=== PATIENT | female | born 1975 | race Caucasian/White ===

== ENCOUNTER 2023-11-08 23:08 | Emergency (ER) | payer OTHER, SELFPAY ==
--- NOTE | 2023-11-08 23:00 | DI.RAD_ITS ---
Exam(s) XR TIB/FIB LT XR ANKLE LT COMPLETE EXAM: XR ANKLE LT COMPLETE CLINICAL HISTORY: slip/fall, ankle pain, r/o fx TECHNIQUE: 2D digital imaging was performed. Three views. COMPARISON: CR,XR XR TIB/FIB LT from 11/08/2023 FINDINGS: BONES: Mildly displaced oblique fracture through the proximal fibula. Minimally displaced fracture t hrough the posterior malleolus extending in the coronal plane. No significant separation at the caleb cular surface. No bony destructive lesion is seen. JOINTS:Widening of the medial ankle mortise. SOFT TISSUE: Swelling around the malleoli, greater medially. IMPRESSION: Proximal fibular fracture. Fracture of the posterior malleolus. Widening of the medial ankle mortis e. DATA REPOSITORY: RADIATION DOSE DELIVERED:
[2023-11-08 23:10] VITALS: BP 178/109; PULSE 107; RESP 22; TEMP 36.6; O2SAT 100
[2023-11-08] MEDS: Acetaminophen 500 MG TAB 1000 MG PO (23:25)
[2023-11-08] MEDS: Ibuprofen 800 MG TAB PO (23:26)
--- NOTE | 2023-11-09 00:22 | W.ED.GENAD ---
Discharge Plan Disposition Patient Disposition: Home Condition: Good Discharge Details Clinical Impression: Fracture of distal end of left tibia, Fracture of fibula, proximal Primary Care Provider: Beulah Payan ED Provider: Dariel Bhakta Home Meds and New Rx's Prescriptions: No Action dextroamphetamine-amphetamine [Adderall] 20 mg tablet 40 mg PO DAILY fluoxetine [Prozac] 20 mg capsule 20 mg PO DAILY Discharge Instructions Instructions: Ankle Fracture ED Additional Instructions: At this time your x-rays show evidence of a fracture of your tibia and fibula. Unfortunately there also appears to be disruption around your ankle or the ligaments. This requires further evaluation by an marketing communications specialist to determine need for potential surgery. Please ice the area frequently. Please take at 1000 mg of Tylenol every 6 hours and 800 mg of ibuprofen every 6 hours. These are the maximum doses. Please keep your leg elevated. If you notice that the pain becomes unbearable or feels like a viselike sensation, or you notice significant color change for your feet or toes, please loosen up the wrapping for the cast. If the pain persists please come to the ER for further assessment. We have placed a referral with the marketing communications specialist, they will contact you with an appointment time. If you notice any worsening of your symptoms, or any new symptoms such as vomiting, diarrhea, fever, chills, shortness of breath, chest pain, numbness, weakness, or fainting , please return immediately to the emergency department for reevaluation. Please follow up with your primary care provider as soon as possible for reassessment and reevaluation. As always, it was a pleasure participating in your medical care today. Referrals: Lake Delgado MD [ [facility] STAFF PHYSICIAN] - Aaron Ram MD [ [facility] STAFF PHYSICIAN] - Discharge Data Discharge Date/Time-TO BE ENTERED AT DEPARTURE: 11/09/23 00:40 HPI General Date/Time Provider Initiated Documentation: 11/08/23 23:13. HPI Narrative: 48-year-old female presents today for evaluation of left ankle pain. About 30 minutes prior to arrival she was walking with her dog outside when she slipped, heard a pop, felt immediate pain in her ankle and gonzalez, and was unable to bear weight. She called EMS who brought her to the ER. Currently she admits to pain throughout her ankle and on the lateral aspect of her gonzalez. She denies numbness tingling or weakness otherwise. No other complaints. No other trauma. Related Data Home Medications ?Medication ?Instructions ?Recorded ?Confirmed dextroamphetamine-amphetamine 20 40 mg PO DAILY 11/08/23 11/08/23 mg tablet (Adderall) fluoxetine 20 mg capsule (Prozac) 20 mg PO DAILY 11/08/23 11/08/23 Allergies Allergy/AdvReac Type Severity Reaction Status Date / Time No Known Allergies Allergy Verified 11/08/23 23:19 General Stated Complaint: Orthopedic MICHELL: 4 Review of Systems All systems reviewed & are unremarkable except as noted in HPI and below Exam Narrative Exam Narrative: 1.Const: Well-nourished, Well-developed, appearing stated age 2.Eyes: PERRL, no conjunctival injection, and symmetrical lids. 3.ENT: Atraumatic external nose and ears. Moist MM. Neck: Symmetric, trachea midline, No thyromegaly. 4.CVS: +S1/S2, No murmurs or gallops. Peripheral pulses 2+ and equal in all extremities. Brisk capillary refill in all extremities. 5.RESP: Unlabored respiratory effort. Clear to auscultation bilaterally. No wheezes rales or rhonchi 6.GI: Soft, Nontender/Nondistended, No hepatosplenomegaly. No guarding or rebound. 7.MSK: Left ankle demonstrates tenderness throughout the medial and lateral malleolus, pain with flexion and extension. Normal movement of all toes, brisk capillary refill, normal sensation throughout. Dorsalis pedis and posterior tibial pulse +2 bilaterally. Patient is limited for flexion and extension secondary to pain. Patient also has pain on the mid to proximal fibula. No pain at the patella or tibial plateau. 8.Skin: Warm, Dry. No rashes or lesions. 9.Neuro: room designer II-XII grossly intact. Sensation grossly intact, no focal neurologic deficits. 10.Psych: (AAO) x3. Appropriate mood and affect Course Vital Signs Vital signs: Vital Signs Temperature 36.6 C 11/08/23 23:10 Pulse 107 H 11/08/23 23:10 Respiratory Rate 22 11/08/23 23:10 Blood Pressure 178/109 H 11/08/23 23:10 Pulse Oximetry 100 11/08/23 23:10 Temperature 36.6 C 11/08/23 23:10 Temperature Source Temporal Artery Scan 11/08/23 23:10 Pulse 107 H 11/08/23 23:10 Respiratory Rate 22 11/08/23 23:10 Respiratory Effort Normal, Non-Labored 11/08/23 23:14 Blood Pressure 178/109 H 11/08/23 23:10 Blood Pressure Position Sitting 11/08/23 23:10 Pulse Oximetry 100 11/08/23 23:10 Oxygen Delivery Method Room Air 11/08/23 23:10 Oxygen Flow Rate 0 11/08/23 23:10 Pain Level 7 11/08/23 23:12 Medical Decision Making 48-year-old female presents today for evaluation of left ankle pain. About 30 minutes prior to arrival she was walking with her dog outside when she slipped, heard a pop, felt immediate pain in her ankle and gonzalez, and was unable to bear weight. She called EMS who brought her to the ER. Currently she admits to pain throughout her ankle and on the lateral aspect of her gonzalez. She denies numbness tingling or weakness otherwise. No other complaints. No other trauma. Exam demonstrates evidence of tenderness at the ankle for movement in all directions, normal neurovascular exam. Also tenderness is present over the proximal fibula. X-ray was ordered, Tylenol Motrin were given. Patient demonstrates evidence of fracture of the posterior aspect of the distal tibia, as well as the mid shaft of the proximal fibula. Patient was placed in a posterior splint, as well as a sugar-tong. She tolerated this well. Will recommend nonweightbearing, and crutches have been given. Will recommend outpatient follow-up out of concern for ankle instability and ligamentous damage secondary to the abnormalities for the ankle mortise. Suspect both osseous and ligamentous damage. Will recommend continued ice Tylenol and Motrin. Will give 4 oxycodone tablets for home use. Will place referral for outpatient orthopedics. Patient demonstrates normal neurovascular exam. Patient stable for discharge. I have extensively reviewed the treatment plan and discharge instructions with the patient. I have addressed all patient concerns at this time. The patient was made aware of what symptoms to monitor for that would warrant a return to the emergency department. Discussed the plan with the patient, they demonstrate verbal understanding and agreement with our assessment and plan at this time. The documentation in this chart was dictated using [employer] dictation software. Please excuse any dictation errors. FINDINGS: Bones/joints: There is widening of the tibiotalar articulation the medial malleolus which likely represents ligamentous injury. There is a fracture of the posterior malleolus of the left tibia. This was present but not well visualized on the patient's tibia and fibula films. Bone mineralization is ageappropriate. No evidence of dislocation. No significant degenerative narrowing and no bony erosion seen. Soft tissues: No radiopaque foreign body present. There is soft tissue swelling present. IMPRESSION: 1. There is widening of the tibiotalar articulation the medial malleolus which likely represents ligamentous injury. 2. There is a fracture of the posterior malleolus of the left tibia. This was present but not well visualized on the patient's tibia and fibula films. 3. There is soft tissue swelling present. Thank you for allowing us to participate in the care of your patient. FINDINGS: Bones/joints: There is comminuted fracture of the proximal left fibula. Questionable bony defect at the lateral aspect of the distal femoral condyle may represent acute fracture. Bone mineralization is age-appropriate. No evidence of dislocation. The joint spaces are adequately preserved; no significant degenerative narrowing and no bony erosion seen. Soft tissues: No radiopaque foreign body present. There is soft tissue swelling present. IMPRESSION: 1. There is comminuted fracture of the proximal left fibula. 2. Questionable bony defect at the lateral aspect of the distal femoral condyle may represent acute fracture. 3. There is soft tissue swelling present. Quality:SDOH Health Related Social Needs: No Data to Display PFSH All Active Problems Fracture of fibula, proximal (Acute) Fracture of distal end of left tibia (Acute) Social History Smoking/Tobacco Use Status: Never Smoking risk assessment performed?: Yes Alcohol Intake: current Alcohol Intake frequency: 3 or more drinks per day Alcohol type: beer Drug use: Never Substance use type: does not use Do you feel safe at home: Yes Do you feel safe in your relationship?: Yes PAWSS Have you Been Recently Intoxicated or Drunk Within the Last 30 days?: No Have you Ever Experienced Previous Episodes of Alcohol Withdrawal?: No Have you ever Experienced Withdrawal Seizures?: No Have you ever Experienced Delirium Tremens(DT)s?: No Have you ever undergone Alcohol Rehabilitation Treatment (i.e, inpt ot outpatient treatment programs)?: No Have you ever Experienced Blackouts?: No Have you ever Combined Alcohol with other Downers within the last 90 days?: No Have you ever Combined Alcohol with any other Substance of Abuse during the last 90 days?: No Positive Blood Alcohol level on Presentation? [PCS.BAL]: No Evidence of Increased Autonomic Activity (i.e. HR>120, tremor, sweating, agitation, nausea)?: No Result: 0
[2023-11-09] MEDS: oxyCODONE 5 MG TAB PO (00:38)
[2023-11-09 00:40] VITALS: BP 148/96; PULSE 91; RESP 16; O2SAT 100
--- NOTE | 2023-11-09 01:02 | DI.VRAD_ITS ---
Addendum created by Sunil Mishra MD on 11/09/2023 1:04:07 AM EDT: There is a fracture of the posterior malleolus of the left tibia. Initial report created on 11/09/2023 1:02:05 AM EDT: PROCEDURE INFORMATION: Exam: XR Left Tibia and Fibula Exam date and time: 11/08/2023 11:32 PM Age: 48 years old Clinical indication: Pain and injury or trauma; Blunt trauma; Lower leg; Left; Injury details: Fall, mid tib fib pain TECHNIQUE: Imaging protocol: Radiologic exam of the left tibia and fibula. Views: 2 views. COMPARISON: No relevant prior studies available. FINDINGS: Bones/joints: There is comminuted fracture of the proximal left fibula. Questionable bony defect at the lateral aspect of the distal femoral condyle may represent acute fracture. Bone mineralization is age-appropriate. No evidence of dislocation. The joint spaces are adequately preserved; no significant degenerative narrowing and no bony erosion seen. Soft tissues: No radiopaque foreign body present. There is soft tissue swelling present. IMPRESSION: 1. There is comminuted fracture of the proximal left fibula. 2. Questionable bony defect at the lateral aspect of the distal femoral condyle may represent acute fracture. 3. There is soft tissue swelling present. Dictated and Authenticated by: Sunil Mishra MD. Ordering:SUZANNE Vieira MD
--- NOTE | 2023-11-09 01:05 | DI.VRAD_ITS ---
PROCEDURE INFORMATION: Exam: XR Left Ankle Exam date and time: 11/08/2023 11:33 PM Age: 48 years old Clinical indication: Pain and injury or trauma; Blunt trauma; Left; Injury details: Slip/fall, ankle pain, R/O FX TECHNIQUE: Imaging protocol: Radiologic exam of the left ankle. Views: 3 or more views. COMPARISON: CR XR TIB/FIB LT 11/08/2023 11:32 PM FINDINGS: Bones/joints: There is widening of the tibiotalar articulation the medial malleolus which likely represents ligamentous injury. There is a fracture of the posterior malleolus of the left tibia. This was present but not well visualized on the patient's tibia and fibula films. Bone mineralization is age-appropriate. No evidence of dislocation. No significant degenerative narrowing and no bony erosion seen. Soft tissues: No radiopaque foreign body present. There is soft tissue swelling present. IMPRESSION: 1. There is widening of the tibiotalar articulation the medial malleolus which likely represents ligamentous injury. 2. There is a fracture of the posterior malleolus of the left tibia. This was present but not well visualized on the patient's tibia and fibula films. 3. There is soft tissue swelling present. Dictated and Authenticated by: Sunil Mishra MD. Ordering:SUZANNE Vieira MD
== END 2023-11-09 00:40 | disposition home or self-care (01) ==
LOC: ER 11-09 00:52
PROVIDERS: Emergency Provider Student in an Organized Health Care Education/Training Program; PCP Registered Nurse Critical Care Medicine
DX: S82.302A Unspecified fracture of lower end of left tibia, initial encounter for closed fracture (principal); S82.832A Other fracture of upper and lower end of left fibula, initial encounter for closed fracture; W01.0XXA Fall on same level from slipping, tripping and stumbling without subsequent striking against object, initial encounter
CPT/HCPCS: 29515; 99284; 73590; 73610

== ENCOUNTER 2023-11-13 13:45 | Day surgery (SDC) | payer OTHER, SELFPAY ==
[2023-11-13] VITALS (13 sets, daily range): BP systolic 93–155; BP diastolic 62–89; PULSE 80–89; RESP 12–20; TEMP 36.3–36.8; O2SAT 92–100; BMI 29.1
--- NOTE | 2023-11-13 10:26 | W.ANESPRE ---
General Info Date of Service Date Performed: 11/13/23 Height: 4 ft 11 in Weight: 65.503 kg Body Mass Index (BMI): 29.1 Surgical Procedure: Operation Date: 11/13/23 15:55 Proposed Procedure Side Surgeon p Ankle ORIF Left Aaron Ram MD Meds Allergies and Home Medications Allergies Allergy/AdvReac Type Severity Reaction Status Date / Time No Known Allergies Allergy Verified 11/13/23 15:00 Home Medication ?Medication ?Instructions ?Recorded dextroamphetamine-amphetamine 20 40 mg PO DAILY 11/08/23 mg tablet (Adderall) fluoxetine 20 mg capsule (Prozac) 20 mg PO DAILY 11/08/23 atorvastatin 20 mg tablet 20 mg PO DAILY 11/11/23 diphenhydramine HCl 25 mg tablet 25 mg PO Q8H PRN 11/11/23 (Allergy) levonorgestrel 0.15 mg-ethinyl 1 tab PO DAILY 11/11/23 estradiol 0.03 mg tablet (Altavera (28)) lysine 500 mg tablet (L-Lysine) 500 mg PO DAILY 11/11/23 acetaminophen 500 mg tablet 1,000 mg (2 x 500 mg) PO TID #90 11/13/23 tabs aspirin 81 mg tablet,delayed 81 mg PO BID #60 tabs 11/13/23 release ibuprofen 600 mg tablet 600 mg PO TID PRN pain #90 tabs 11/13/23 oxycodone 5 mg tablet 5 mg PO Q4H PRN pain #20 tabs 11/13/23 Current Visit Medications: Current Medications Generic Name Dose Route Start Last Admin Trade Name Freq PRN Reason Stop Dose Admin Acetaminophen 1,000 mg 11/13/23 06:00 Acetaminophen 500 Mg Tab PO 11/13/23 23:59 PREOP KOBE Celecoxib 400 mg 11/13/23 06:00 Celecoxib 200 Mg Cap PO 11/13/23 23:59 PREOP KOBE Ringer's Solution 1,000 mls @ 80 mls/hr 11/13/23 06:00 IV 11/13/23 23:59 INFUSION KOBE Cefazolin Sodium/Dextrose 2 gm in 50 mls @ 100 mls/hr 11/13/23 06:00 Ancef Duplex IVPB 11/13/23 23:59 PREOP KOBE Tranexamic Acid/Sodium Chloride 1,000 mg in 100 mls @ 600 mls/hr 11/13/23 06:00 IVPB 11/13/23 23:59 PREOP KOBE IV Miscellaneous Supplies 1 each 11/13/23 06:00 Iv Access IV 11/13/23 23:59 DIRECTED KOBE Sodium Chloride 0 ml 11/13/23 06:00 Normal Saline Flush 10 Ml Syr IV 11/13/23 23:59 PRN PRN Sodium Chloride 0 ml 11/13/23 06:00 Normal Saline 10 Ml Vial IJ 11/13/23 23:59 DIRECTED PRN Sterile Water 0 ml 11/13/23 06:00 Water,Injection,Sterile 10 Ml Vial IJ 11/13/23 23:59 DIRECTED PRN PFSH Active Problems Active Problems: Problem Status Onset Code Maria Duvtavo fracture of left lower extremity Acute S82.862A Fracture of fibula, proximal Acute S82.839A Fracture of distal end of left tibia Acute S82.302A Medical History Medical History (Updated 11/11/23 @ 12:51 by Stoney Kent) ADHD Depression Surgical History Surgical History (Updated 11/13/23 @ 12:08 by EILEEN Huizar) Hx of colonoscopy Tobacco Smoking/Tobacco Use Status: Never Alcohol Alcohol Intake: current Alcohol intake frequency: 3 or more drinks per day Alcohol type: beer Substance Use Substance use: Never Substance use type: does not use Vital Signs and Lab Results Vital Signs Most Recent Vital Signs in EMR: Temp Pulse Resp BP Pulse Ox 36.5 C 87 20 145/88 H 99 11/13/23 14:30 11/13/23 14:30 11/13/23 14:30 11/13/23 14:30 11/13/23 14:30 Lab Results Blood Type / Crossmatch: No Data to Display Complete Blood Count: No Data to Display Complete Metabolic Panel: No Data to Display Liver Function Panel: No Data to Display Coagulation Panel: No Data to Display Cardiac Panel: No Data to Display Arterial Blood Gas: No Data to Display Venous Blood Gas: No Data to Display Pancreas Panel: No Data to Display Thyroid Panel: No Data to Display Infectious Disease: No Data to Display Blood Cultures: No Data to Display Toxicology Panel: No Data to Display Panel: No Data to Display Anesthesia Assessment and Plan Anesthesia History Personal History: No History of Anesthesia Complications Family History: No Family History of Anesthesia Complications Exercise Tolerance Exercise Tolerance: Metabolic Equivalents>4 Cardiac & Pulmonary Exam Cardiac Exam: Normal S1/S2 Heart Sounds Pulmonary Exam: Clear Bilateral Breath Sounds Implantable Cardiac Device Does patient have a Pacemaker or an ICD?: No Airway Exam Known Difficult Airway: No Mallampati Class: 3 Mouth Opening: Narrow (< 3cm) Thyromental Distance: Less than 3 cm Neck Range of Motion: Full ROM Neck Circumference: Normal Teeth Condition: Normal Dentition ASA Classification ASA Score: ASA 2 Emergency Case?: No NPO Status NPO Status: NPO Clears >2 hours, Solids >8 hours Status Status: Negative HCG Anesthesia Plan Resuscitation Status: Full Code Anesthesia Technique: General Anesthesia Airway Planned: LMA Pain Management: Surgeon and patient request nerve block Monitors Used: Standard Monitors Preoperative Comments:: 48 yo female for ORIF ankle fracture. Sig PMHx: ADHD (adderall), depression (fluoxetine). never smoker, daily EtOH. Discussed risk, benefits of GA vs spinal, will proceed with GA. Would like regional, discussed risk of failure, and risk of permanent nerve injury.
--- NOTE | 2023-11-13 12:07 | W.PM.DSUDISC ---
Date of service: 11/13/23 Time of Service: 12:07 Discharge Plan Disposition Patient Disposition: Home Condition: Good Discharge Details Reason For Visit: ORIF L ankle Attending Provider: Aaron Ram Primary Care Provider: Beulah Payan Home Meds and New Rx's Prescriptions: New acetaminophen 500 mg tablet 1,000 mg PO TID Qty: 90 3RF ibuprofen 600 mg tablet 600 mg PO TID PRN (Reason: pain) Qty: 90 0RF oxycodone 5 mg tablet 5 mg PO Q4H MDD 6 tabs PRN (Reason: pain) Qty: 20 0RF aspirin 81 mg tablet,delayed release (DR/EC) 81 mg PO BID Qty: 60 0RF Continued atorvastatin 20 mg tablet 20 mg PO DAILY lysine [L-Lysine] 500 mg tablet 500 mg PO DAILY diphenhydramine HCl [Allergy] 25 mg tablet 25 mg PO Q8H PRN levonorgestrel-ethinyl estrad [Altavera (28)] 0.15-0.03 mg tablet 1 tab PO DAILY dextroamphetamine-amphetamine [Adderall] 20 mg tablet 40 mg PO DAILY fluoxetine [Prozac] 20 mg capsule 20 mg PO DAILY Discontinued ibuprofen [Addaprin] 200 mg tablet 800 mg PO Q6H PRN acetaminophen 500 mg capsule 1,000 mg PO Q6H PRN Discharge Instructions Additional Instructions: Ankle ORIF Discharge Instructions Activity: You are NON WEIGHT BEARING. You should keep the leg elevated as much as possible. You may wiggle your toes and move your hip and knee. Dressings: You should keep your splint clean and dry. Do NOT get wet or dirty. If you have issues with your splint, please call the office at [phone] or the hospital after hours. Medications: - You should take Tylenol and Ibuprofen around the clock for baseline pain. - You have been prescribed a stronger narcotic for breakthrough pain. - You should take a Baby Aspirin (81mg) twice a day for blood clot prevention. Follow-up: 2 weeks Stand Alone Forms: Anesthesia Discharge Inst., Crutch Training Instructions, Ramiro Phillips ([email or web address]) Referrals: Aaron Ram MD [ [facility] STAFF PHYSICIAN] - 11/25/23 1:30 pm Equipment/Supplies: Non-Weight Bearing Crutches Activity:: Elevate Remove Dressings/Wound Care:: Do Not Remove Shower/Bathe:: Cover Diet:: As Tolerated Discharge Orders Discharge Orders: Discharge Order (Routine); Ordered 11/13/23 Ordered By: Dhaval Page DS: Diagnosis Discharge Diagnosis (1) Majosé luis fracture of left lower extremity: Status: Acute
--- NOTE | 2023-11-13 14:45 | DI.RAD_ITS ---
Exam(s) XR TIB/FIB LT EXAM: XR TIB/FIB LT CLINICAL HISTORY: LEFT ANKLE FRACTURE. TECHNIQUE: 2D digital imaging was performed. COMPARISON: CR,XR XR ANKLE LT COMPLETE from 11/08/2023 FINDINGS: Fluoroscopy provided during left ankle ORIF. See procedure report for details. Total fluoroscopy time 43.9 seconds IMPRESSION: Radiation exposure index/cumulative dose:Torier= 1.69mGy DATA REPOSITORY: RADIATION DOSE DELIVERED:
--- NOTE | 2023-11-13 14:45 | W.PREOPHP ---
Assessment and Plan Assessment and plan (1) Maisonneuve fracture of left lower extremity: Status: Acute Assessment and plan: Jennifer is a 48-year-old female who suffered a Maisonneuve type fracture about the left leg. This is an unstable fracture righty. Therefore I recommended operative fixation. I discussed the tentacle details of the surgery with her. My intention would be to simply fix and stabilize the syndesmosis with flexible fixation. Rigid fixation was also discussed with this would have to be removed, given her active lifestyle. I would only Fixapost really a fragment if it is not still anatomically reduced after fixation of the syndesmosis. Proximal fibula fracture does not need to be fixed. I discussed all this with her. Answered her questions. I reviewed the risk to include bleeding, infection, pain, stiffness, damage to nerves and vessels, damage to muscle and tendons, need for repeat procedures, arthritis, instability, hardware failure, hardware prominence, need for repeat procedures, arthritis, blood clot. Despite these risk, she elects to proceed. History of Present Illness Narrative: Jennifer is a 48-year-old active female who presents today for her left ankle. Unfortunately, she slipped on some wet grass suffering a rotational injury to the left leg with notable deformity and pain. She was seen in the emergency department and diagnosed with a Maisonneuve type fracture about the left leg and ankle. She also a small posterior malleolar fracture which was nondisplaced. She was placed in a splint. I was called for consultation and I discussed this with her over the phone. She did have talar displacement with this unstable fracture variety and therefore I recommend operative fixation. She is here today for this procedure. She denies any other acute changes. No significant medical history. She denies any chest pain or shortness of breath. No numbness or tingling. Review of Systems All systems reviewed & are unremarkable except as noted in HPI and below PFSH All Active Problems Maisonneuve fracture of left lower extremity (Acute 11/09/23) S/P ORIF: 11/13/2023 Fracture of fibula, proximal (Acute) Fracture of distal end of left tibia (Acute) Medical History ADHD Depression Surgical History Hx of colonoscopy Social History Smoking/Tobacco Use Status: Never Smoking risk assessment performed?: Yes Alcohol Intake: current Alcohol Intake frequency: 3 or more drinks per day Alcohol type: beer Drug use: Never Substance use type: does not use Housing: apartment Do you feel safe at home: Yes Do you feel safe in your relationship?: Yes Meds Allergies and Home Medications Allergies Allergy/AdvReac Type Severity Reaction Status Date / Time No Known Allergies Allergy Verified 11/11/23 12:53 Home Medications ?Medication ?Instructions ?Recorded ?Confirmed ?Type dextroamphetamine-amphetamine 20 40 mg PO DAILY 11/08/23 11/11/23 History mg tablet (Adderall) fluoxetine 20 mg capsule (Prozac) 20 mg PO DAILY 11/08/23 11/11/23 History atorvastatin 20 mg tablet 20 mg PO DAILY 11/11/23 11/11/23 History diphenhydramine HCl 25 mg tablet 25 mg PO Q8H PRN 11/11/23 11/11/23 History (Allergy) levonorgestrel 0.15 mg-ethinyl 1 tab PO DAILY 11/11/23 11/11/23 History estradiol 0.03 mg tablet (Altavera (28)) lysine 500 mg tablet (L-Lysine) 500 mg PO DAILY 11/11/23 11/11/23 History acetaminophen 500 mg tablet 1,000 mg (2 x 500 mg) PO TID #90 11/13/23 Rx tabs aspirin 81 mg tablet,delayed 81 mg PO BID #60 tabs 11/13/23 Rx release ibuprofen 600 mg tablet 600 mg PO TID PRN pain #90 tabs 11/13/23 Rx oxycodone 5 mg tablet 5 mg PO Q4H PRN pain #20 tabs 11/13/23 Rx Exam Const General: cooperative, healthy appearing, comfortable and no acute distress Resp Effort & Inspection: normal respiratory effort Auscultation: clear to auscultation bilaterally Cardio Rate: regular rate Rhythm: regular rhythm Extrem Other: Evaluation of the left lower extremity is in a splint. She has no significant bruising or swelling of the toes of the foot. She endorses full sensation over the deep and superficial peroneal nerve and tibial nerve. Capillary refill less than 2 seconds. Results Imaging Imaging Studies: X-ray of the tibia and fibula as well as left ankle shows a Maisonneuve type fracture with a proximal fibula fracture which is oblique in nature. There is some talar displacement on the ankle films. There is also a small posterior malleolar fragment which is nondisplaced.
[2023-11-13] MEDS: Lactated Ringers 1,000 ML 80 ML IV (15:00)
[2023-11-13] MEDS: ceFAZolin 2 GM/50 ML BAG IVPB (15:35)
--- NOTE | 2023-11-13 15:35 | W.ANESNERVE ---
Nerve Block Single Injection Procedure Date and Time Date Performed: 11/13/23 Procedure Start: 15:22 Location Where Procedure Performed Procedure Location: Day Surgery Unit Reason Performed: Postoperative Analgesia Requesting Provider: Aaron Ram Timeout Performed Timeout Performed: Yes Monitoring Used ECG, Blood Pressure, SpO2 and ETCO2 Sterility Sterility: Hand Hygiene, Surgical Cap, Surgical Mask, Sterile Gloves, Sterile Drape/Sheet and Chlorhexidine Sedation Given During Procedure Sedation Given (Indicate Dose Given): Versed IV Dose:: 2 mg Patient Mental Status Patient Mental Status: Sedate with meaningful communication Nerve Block 1st Nerve Block: Laterality: Left Block Type: Popliteal Sciatic Ultrasound Image Saved?: Yes Needle / Catheter Used: 100mm SonoPlex II Local Anesthetic Bolus (Indicate Dose Given): Lidocaine used for local infiltration of skin and Bupivacaine 0.5% Dose:: 20 mL Additives (Indicate Dose Given): Epinephrine to make 1:400,000 (2.5mcg/ml) Dose:: 50 mcg Ultrasound: Sterile probe cover and gel used Nerve Stimulator: Supplement to Ultrasound use and No twitch or parasthesia noted < 0.5 mA Paresthesia: None Procedure Tolerated: No Complications Procedure Outcome: Successful Performed By: Fausto Jamil
[2023-11-13] MEDS: TRANEXAMIC ACID/SOD. CHL. 1,000 MG/100 ML BAG 600 MG IVPB (15:39)
[2023-11-13] MEDS: Bupivacaine 0.5% Pres-Free W/EPI 30 ML VIAL (16:02)
--- NOTE | 2023-11-13 16:37 | ROE_ITS ---
Date of service: 11/13/23 Time of Service: 15:45 Operative Note Operative Note DATE OF PROCEDURE: 11/13/23 PRE-OP DIAGNOSIS: Left Maisonneuve fracture POST-OP DIAGNOSIS: same (Along with posterior malleolus fracture) PROCEDURE: Open Reduction and Internal Fixation of left ankle syndesmosis SURGEON: Aaron Ram [employer]ED [employer]SEM[employer] REPAIRER: Dhaval Page ANESTHESIA TYPE: General LMA/ETT Refer to Anesthesia Record ESTIMATED BLOOD LOSS: 5 PATHOLOGY: none sent TOURNIQUET TIME: 0 COMPLICATIONS: None Patient was transported to: PACU Patient's condition: stable Indications: Jennifer is a 48-year-old active female who presented to the Emergency Department after a fall, slipping on wet grass. X-rays confirmed the diagnosis of a Maisonneuve type fracture with a proximal oblique fracture of the fibula and widening of the medial tibiotalar space. There is also a small, nondisplaced, fracture of the posterior malleolus. I reviewed the possible treatment options and given the fracture, I recommended operative fixation. I discussed the technical details of the surgery. I reviewed the risks such as bleeding, in fection, pain, stiffness, malunion, nonunion, hardware prominence, hardware faiilure, malrotation, damage to nerves and vessels, blood clot. Despite these risks, she agreed to proceed. Findings: The talus was reduced with internal rotation and dorsiflexion along with direct pressure on the lateral fibula. This reduced anatomically both in length and and positioning of the talus and was secured with a single flexible fixation across the syndesmosis, [employer]. Procedure Description: Jennifer was greeted in the preoperative area. Consent was reviewed and signed. History and physical was performed. Peripheral nerve blockade was performed by anesthesia. Once in the operating room, general anesthesia was administered. The patient was transferred to the operating room table.. She was positioned in a lazy lateral position with the use of beanbag. The operative side placed onto a bone foam ramp. All bony prominences were well padded. Arms were placed out to the side, padded, and secured. Prophylactic antibiotics, Cefazolin 2 grams, was given for prophylactic antibiotics. A timeout was performed for safe surgery. The left leg was prepped with Chloraprep. The leg was draped with a stockinette and extremity drape. A small open incision was made over the distal aspect of the fibula at the proximal location of where the planned syndesmotic fixation would be. The fibula was inspected and not show any signs of fracture or grossed separation from the tibia. I then applied pressure from a lateral to medial direction about against the fibula while an assistant community manager placed the ankle into dorsiflexion and maximal internal rotation. X-rays were obtained and in this position the talus was fully reduced and the fibula was out to length. Therefore, this was held in position and a [employer] Fibulink system device was placed. Starting with a K wire this was advanced from the fibula into the tibia. A drill was then utilized to prepare the pathway, in a graduated fashion with a graduated drill bit. The initial screw was placed into the tibia which was then hooked into the button. A washer was placed on the button and the fibula. This was tightened into there is some resistance and then the anchor was tested. This significantly improved the positioning of the talus although there is just a slight amount of motion. The device was tightened a slight bit more which showed no significant tilting or movement of the talus with stress view. Further x-rays were taken both AP and lateral to investigate the posterior malleolus. It was seen to be completely nondisplaced without any step-off. It was a small portion of the posterior edge of the tibia and given the nondisplaced appearance even with active stress views under live fluoroscopy, I did not pursue any posterior malleolar fixation. Final x-rays were obtained. The deep tissues were closed with a 2-0 Vicryl. Skin was closed with a running 4-0 Monocryl. The wound was dressed with Xeroform, 4 x 4's, Webril. This was placed into a posterior short leg splint although taken all the way up into the proximal aspect the leg given the high fibula fracture. At the end of the case, all counts were correct. Jennifer tolerated the procedure well without known complication and was taken to the PACU for recovery. She will remain nonweightbearing with a splint. Follow-up in 2 weeks for transition from the splint into a boot.
--- NOTE | 2023-11-13 16:52 | W.ANESPOSTOP ---
Postoperative Evaluation Date, Time and Location Date Performed: 11/13/23 Time Performed: 16:52 Patient Location: PACU Vital Signs Most Recent Imported Vital Signs: Most Recent Vital Signs Temp Pulse Resp BP Pulse Ox 36.6 C 82 12 117/74 95 11/13/23 16:42 11/13/23 16:46 11/13/23 16:46 11/13/23 16:46 11/13/23 16:46 Pain Score Most Recent Pain Score: Most Recent Pain Score Pain Level 0 11/13/23 16:42 Assessment Mental Status: Awake (Alert & Oriented to Patient Baseline) Airway and Respiratory Function: Patent airway with normal (patient baseline) respiratory exam Cardiovascular Function: Hemodynamically Stable Hydration Status: Adequately Hydrated Nausea & Vomiting: No Nausea or Vomiting Pain: Pain is tolerable per patient Peripheral Nerve Block: Regional nerve block not resolved at time of post operative discharge
== END 2023-11-13 18:25 | disposition home or self-care (01) ==
LOC: SUR 13:45
PROVIDERS: PCP Registered Nurse Critical Care Medicine; Visit Provider Student in an Organized Health Care Education/Training Program
PROC: (CPT 27829; principal; 2023-11-13 15:45)
DX: S93.432A Sprain of tibiofibular ligament of left ankle, initial encounter (principal); S82.862A Displaced Maisonneuve's fracture of left leg, initial encounter for closed fracture; S82.892A Other fracture of left lower leg, initial encounter for closed fracture; W01.0XXA Fall on same level from slipping, tripping and stumbling without subsequent striking against object, initial encounter; F90.9 Attention-deficit hyperactivity disorder, unspecified type; F32.A Depression, unspecified
CPT/HCPCS: 27829; 28445; 76000; 76942; 81025; 73590; J0131; J0171; J0665; J0690; J1100; J2250; J2405; J2704; J3475

== ENCOUNTER 2023-11-25 15:30 | Outpatient (CLI) | payer OTHER, SELFPAY ==
--- NOTE | 2023-11-25 13:15 | DI.RAD_ITS ---
Exam(s) XR ANKLE LT COMPLETE EXAM: XR ANKLE LT COMPLETE CLINICAL HISTORY: S/P ORIF L ANKLE TECHNIQUE: 2D digital imaging was performed. Three views. COMPARISON: CR,XR XR ANKLE LT COMPLETE from 11/08/2023 XA XR TIB/FIB LT from 11/13/2023 FINDINGS: BONES: No acute fracture is present. No bony destructive lesion is seen. Hardware again again noted in distal tibia and fibula. Posterior malleolar fracture is unchanged in alignment. JOINTS:The ankle mortise is normally aligned. SOFT TISSUE: Normal. IMPRESSION: Stable fracture alignment. DATA REPOSITORY: RADIATION DOSE DELIVERED:
== END 2023-11-25 15:31 | disposition home or self-care (01) ==
LOC: DIORS 15:30
PROVIDERS: PCP Registered Nurse Critical Care Medicine; Visit Provider Student in an Organized Health Care Education/Training Program
DX: S82.862D Displaced Maisonneuve's fracture of left leg, subsequent encounter for closed fracture with routine healing (principal); X58.XXXD Exposure to other specified factors, subsequent encounter
CPT/HCPCS: 73610

== ENCOUNTER 2023-12-23 16:12 | Outpatient (CLI) | payer OTHER, SELFPAY ==
--- NOTE | 2023-12-23 14:45 | DI.RAD_ITS ---
Exam(s) XR TIB/FIB LT XR ANKLE LT COMPLETE EXAM: XR TIB/FIB LT CLINICAL HISTORY: F/U FX. TECHNIQUE: 2D digital imaging was performed. Two views. COMPARISON: CR XR ANKLE LT COMPLETE from 11/25/2023 CR XR ANKLE LT COMPLETE from 12/23/2023 FINDINGS: BONES: The proximal fibular fracture shows no change in alignment. There is increased callus formati on around the fracture site. The hardware in the distal tibia is unchanged in position. Posterior m alleolar fracture remains nondisplaced. No bony destructive lesion is seen. Visualized portion of kn ee and ankle joints are unremarkable. SOFT TISSUE: Mild swelling around the malleoli. IMPRESSION: Stable fracture and hardware alignment. DATA REPOSITORY: RADIATION DOSE DELIVERED:
== END 2023-12-23 16:13 | disposition home or self-care (01) ==
LOC: DIORS 16:12
PROVIDERS: PCP Registered Nurse Critical Care Medicine; Visit Provider Student in an Organized Health Care Education/Training Program
DX: S82.862D Displaced Maisonneuve's fracture of left leg, subsequent encounter for closed fracture with routine healing (principal); X58.XXXD Exposure to other specified factors, subsequent encounter
CPT/HCPCS: 73590; 73610

== ENCOUNTER 2024-02-03 16:04 | Outpatient (CLI) | payer OTHER, SELFPAY ==
--- NOTE | 2024-02-03 15:00 | DI.RAD_ITS ---
Exam(s) XR ANKLE LT COMPLETE EXAM: XR ANKLE LT COMPLETE CLINICAL HISTORY: S/P ORIF TECHNIQUE: 2D digital imaging was performed. Three views. COMPARISON: CR,XR XR ANKLE LT COMPLETE from 11/08/2023 XA XR TIB/FIB LT from 11/13/2023 CR XR ANKLE LT COMPLETE from 11/25/2023 CR XR ANKLE LT COMPLETE from 12/23/2023 FINDINGS: BONES: The previously noted posterior malleolar fracture is not visible which could indicate healing. The screw somewhat obscures this area. No change in hardware alignment. No bony destructive lesio n is seen. JOINTS:The ankle mortise is normally aligned. SOFT TISSUE: Mild swelling. IMPRESSION: Posterior malleolar fracture no longer visible consistent with healing. DATA REPOSITORY: RADIATION DOSE DELIVERED:
== END 2024-02-03 16:05 | disposition home or self-care (01) ==
LOC: DIORS 16:05
PROVIDERS: PCP Registered Nurse Critical Care Medicine; Visit Provider Student in an Organized Health Care Education/Training Program
DX: S82.862D Displaced Maisonneuve's fracture of left leg, subsequent encounter for closed fracture with routine healing (principal); X58.XXXD Exposure to other specified factors, subsequent encounter
CPT/HCPCS: 73610

== ENCOUNTER 2024-05-04 15:21 | Outpatient (CLI) | payer OTHER, SELFPAY ==
--- NOTE | 2024-05-04 13:45 | DI.RAD_ITS ---
Exam(s) XR ANKLE LT COMPLETE EXAM: XR ANKLE LT COMPLETE CLINICAL HISTORY: LEFT ANKLE PAIN. TECHNIQUE: 2D digital imaging was performed. COMPARISON: CR XR ANKLE LT COMPLETE from 02/03/2024 FINDINGS: 3 views No evidence of fracture or widening the ankle mortise. Talar domes unremarkable. Appearance of the screw in the metaphysis of the distal fibula-tibia is unchanged. No degenerative changes e vident. Ankle and subtalar joints appear unremarkable. IMPRESSION: No fractures evident. No widening the ankle mortise. DATA REPOSITORY: RADIATION DOSE DELIVERED:
== END 2024-05-04 15:22 | disposition home or self-care (01) ==
LOC: DIORS 15:22
PROVIDERS: PCP Registered Nurse Critical Care Medicine; Visit Provider Student in an Organized Health Care Education/Training Program
DX: S82.862D Displaced Maisonneuve's fracture of left leg, subsequent encounter for closed fracture with routine healing (principal); X58.XXXD Exposure to other specified factors, subsequent encounter
CPT/HCPCS: 73610